=== PATIENT | female | born 1955 | race African-American/Black ===

== ENCOUNTER 2018-11-11 19:58 | Emergency (ER) | payer MEDICARE, OTHER ==
[~2018-11-11] VITALS: Ht 157.5 cm; Wt 69.0 kg
[2018-11-11] MEDS ORDERED: SOD CHLORIDE 0.9% 1,000 ML IV STA (20:00)
[2018-11-11 20:04] VITALS: Ht 157.5 cm; Wt 69.0 kg
[2018-11-11] MEDS ORDERED: AMLO5TAB4 PO (20:58)
[2018-11-11] MEDS ORDERED: MONT10TA24 PO (20:59)
[2018-11-11] MEDS ORDERED: GABA-526 PO (20:59)
[2018-11-11] MEDS ORDERED: SIMV40TA2 PO (20:59)
[2018-11-11] MEDS ORDERED: NORT25CA PO (21:00)
[2018-11-11] MEDS ORDERED: DEXA4TAB PO (21:01)
--- NOTE | 2018-11-11 21:04 | ERD ---
ER Documentation Chief Complaint Chief Complaint syncopal episode after donating blood, hit head, no LOC, no trauma HPI 63-year-old female who presents to the emergency room complaining of near syncope. The patient states that she was donating blood. She states that they had trouble with IV and she felt lightheaded and fainted. It is possible that she had her head but she denies any significant headache or hematoma. No nausea or vomiting. The patient's blood pressure was initially low but responsive to gentle fluid hydration. She otherwise has no complaints. She does have a history of fibromyalgia. ROS All systems reviewed and are negative except as per history of present illness. Medications Home Meds Reported Medications Dexamethasone* (Dexamethasone*) 4 Mg Tablet, 4 MG PO TID, TAB 11/11/18 Nortriptyline Hcl* (Nortriptyline Hcl*) 25 Mg Capsule, 25 MG PO HS, CAP 11/11/18 Simvastatin* (Zocor*) 40 Mg Tablet, 40 MG PO QHS, #30 TAB 11/11/18 Montelukast Sodium* (Montelukast Sodium*) 10 Mg Tablet, 10 MG PO QHS, #30 TAB 11/11/18 Gabapentin* (Gabapentin*) 600 Mg Tablet, 600 MG PO QID, #60 TAB 11/11/18 Amlodipine Besylate* (Norvasc*) 5 Mg Tablet, 5 MG PO DAILY, TAB 11/11/18 Allergies Allergies: Uncoded Allergies: STEROIDS (Allergy, Unknown, 11/11/18) PMhx/Soc Medical and Surgical Hx: pt denies Medical Hx, pt denies Surgical Hx Hx Neurological Disorder: Yes (fibromyalgia ) Hx Respiratory Disorders: Yes (asthma) Hx Alcohol Use: No Hx Substance Use: No Hx Tobacco Use: No Smoking Status: Never smoker FmHx Family History: No diabetes Physical Exam Vitals Vital Signs Date Temp Pulse Resp B/P (MAP) Pulse Ox O2 O2 Flow FiO2 Time Delivery Rate 11/11/18 96.8 76 20 126/65 100 Room Air 20:06 (85) 11/11/18 96.8 53 20 100 20:04 Physical Exam Airway is intact Bilateral breath sounds Strong distal pulses No obvious deficits General: Well developed, well nourished, no acute distress Head: Normocephalic, atraumatic Eyes: Pupils equally reactive, EOM intact ENT: Moist mucous membranes Neck: Supple, no lymphadenopathy, No midline tenderness, deformities, step-offs to the cervical spine, full active and passive range of motion without midline pain. Respiratory: Lungs clear bilaterally, no distress, no chest wall tenderness, no crepitus Cardiovascular: RRR, no murmurs, rubs, or gallops Abdominal: Soft, non-tender, non-distended, no peritoneal signs, pelvis is stable : Deferred MSK: No edema, no unilateral swelling, 5/5 strength, no midline tenderness deformities or step-offs to the thoracolumbar spine Neurologic: Alert and oriented, moving all extremities, normal speech, no focal weakness, no cerebellar signs Skin: No ecchymoses or bruising to the chest or abdomen Psych: Normal mood Result Diagram: 11/11/182031 Results 24 hrs Laboratory Tests Test 11/11/18 20:32 White Blood Count 7.0 10^3/ul Red Blood Count 4.36 10^6/ul Hemoglobin 11.0 g/dl Hematocrit 35.3 % Mean Corpuscular Volume 81.0 fl Mean Corpuscular Hemoglobin 25.2 pg Mean Corpuscular Hemoglobin Concent 31.2 g/dl Red Cell Distribution Width 13.9 % Platelet Count 300 10^3/UL Mean Platelet Volume 10.2 fl Immature Granulocytes % 0.400 % Neutrophils % 72.3 % Lymphocytes % 19.0 % Monocytes % 7.0 % Eosinophils % 1.0 % Basophils % 0.3 % Nucleated Red Blood Cells % 0.0 /100WBC Immature Granulocytes # 0.030 10^3/ul Neutrophils # 5.1 10^3/ul Lymphocytes # 1.3 10^3/ul Monocytes # 0.5 10^3/ul Eosinophils # 0.1 10^3/ul Basophils # 0.0 10^3/ul Nucleated Red Blood Cells # 0.0 10^3/ul Current Medications Medications Dose Sig/Litzy Start Time Status Last (Trade) Ordered Route PRN Stop Time Admin Dose Reason Admin Sodium 1,000 ml @ Q1H STAT 11/11/18 DC 11/11/18 Chloride 1,000 mls/hr IV 20:00 11/11/18 20:38 20:59 Procedures/MDM EKG, MONITORS, & DIAGNOSTIC IMAGING: EKG: I reviewed and interpreted a 12-lead EKG. Rhythm: Normal sinus rhythm ST Changes: No contiguous ST segment elevations T waves: No contiguous T wave inversions Impression: No evidence of acute cardiac ischemia LAB INTERPRETATION: No anemia MEDICAL DECISION MAKING: The patient presents with hypotension and near syncope after donating blood. This is likely secondary to volume shifts and transient hypovolemia. The patient states that she may have hit her head but has no obvious evidence of trauma. No signs or symptoms concerning for clinically significant traumatic brain injury. No indication for CT imaging of the brain at this time. The patient does not meet high-risk criteria and based on NEXUS cervical spine criteria there is no indication for cervical spine imaging at this time. ER COURSE: * The patient was given IV fluids. The patient's blood pressure has remained stable. She has returned to her baseline and continues to be extremely well- appearing. At this point the patient can be safely discharged home. No further indication for intervention. CONSULTATION: None DISPOSITION PLAN: The patient does not have an identifiable emergent medical condition that warrants inpatient hospitalization at this time. The patient is deemed safe for discharge with outpatient follow-up. We discussed follow up with the patient's primary care doctor within 24 to 48 hours as needed. We also discussed return to the emergency room for worsening symptoms or worsening condition. Outpatient referral: None required Departure Diagnosis: Primary Impression: Near syncope Condition: Stable Patient Instructions: Near Syncope, Unknown Referrals: [facility] YOU HAVE RECEIVED A MEDICAL SCREENING EXAM AND THE RESULTS INDICATE THAT YOU DO NOT HAVE A CONDITION THAT REQUIRES URGENT TREATMENT IN THE EMERGENCY DEPARTMENT. FURTHER EVALUATION AND TREATMENT OF YOUR CONDITION CAN WAIT UNTIL YOU ARE SEEN IN YOUR DOCTORS OFFICE WITHIN THE NEXT 1-2 DAYS. IT IS YOUR RESPONSIBILITY TO MAKE AN APPOINTMENT FOR FOL-UP CARE. IF YOU HAVE A PRIMARY DOCTOR --you should call your primary doctor and schedule an appointment IF YOU DO NOT HAVE A PRIMARY DOCTOR YOU CAN CALL OUR PHYSICIAN REFERRAL HOTLINE AT IF YOU CAN NOT AFFORD TO SEE A PHYSICIAN YOU CAN CHOSE FROM THE FOLLOWING [facility] [address] [facility] [address] [facility] [address] [facility] [address] [facility] [address] [facility]. [facility] [address] [facility]. [facility] YOU HAVE RECEIVED A MEDICAL SCREENING EXAM AND THE RESULTS INDICATE THAT YOU DO NOT HAVE A CONDITION THAT REQUIRES URGENT TREATMENT IN THE EMERGENCY DEPARTMENT. FURTHER EVALUATION AND TREATMENT OF YOUR CONDITION CAN WAIT UNTIL YOU ARE SEEN IN YOUR DOCTORS OFFICE WITHIN THE NEXT 1-2 DAYS. IT IS YOUR RESPONSIBILITY TO MAKE AN APPOINTMENT FOR FOLOW-UP CARE. IF YOU HAVE A PRIMARY DOCTOR --you should call your primary doctor and schedule and appointment IF YOU DO NOT HAVE A PRIMARY DOCTOR YOU CAN CALL OUR PHYSICIAN REFERRAL HOTLINE AT . IF YOU CAN NOT AFFORD TO SEE A PHYSICIAN YOU CAN CHOSE FROM THE FOLLOWING [facility] INSTITUTIONS: [facility] [id number] [place] [id number] [facility] [address] [place], [place] [id number] [place] [address] + [facility] [address] [place] [address] Additional Instructions: Call your primary care doctor TOMORROW for an appointment during the next 1 WEEK.Tell the confidential secretary that you were referred from this facility.See the doctor sooner or return here if your condition worsens before your appointment time. MARTA BARGER MD Nov 11, 2018 21:04
[2018-11-11 21:22] VITALS: BP 118/76; PULSE 58; RESP 18
== END 2018-11-11 21:29 | disposition home or self-care (01) ==
LOC: E/R 19:58
DX: R55 Syncope and collapse (principal); J45.909 Unspecified asthma, uncomplicated
CPT/HCPCS: 36415; 85025; 93005; 99284; J7030